=== PATIENT | male | born 1940 | race Caucasian/White ===

== ENCOUNTER 2016-07-23 07:12 | Day surgery (SDC) | payer MEDICARE ==
--- NOTE | ~2016-07-23 | OP ---
Record Of [facility] [address] [place]. [address] NAME: RIZWAN BOLANOS : 40 STATUS : [facility]#: [id number] AGE: 76 ADM/REG DATE : 07/23/16 MR#: [id number] REPORT SERV DATE: 07/23/16 DICTATED BY: FARHAD JEONG DATE: 07/23/16 REPORT STATUS : Draft TRANSCRIBED BY: MODL DATE: 07/23/16 DATE OF PROCEDURE: 07/23/2016 SERVICE: Otolaryngology. SURGEON: Fahrad Jeong MD PREOPERATIVE DIAGNOSIS: History of hypopharynx squamous cell carcinoma, status post chemoradiation. POSTOPERATIVE DIAGNOSIS: History of hypopharynx squamous cell carcinoma, status post chemoradiation. PROCEDURE PERFORMED: Direct laryngoscopy with biopsy of posterior pharynx and left arytenoid. INDICATIONS FOR PROCEDURE: The patient is a 76-year-old male with a history of hypopharyngeal squamous cell carcinoma, diagnosed last year. He completed concurrent chemoradiation therapy in 01/2016. He required PEG feedings at that time due to dysphagia and aspiration on swallow study. On recent evaluation, he was noted to have ulceration in his left posterior pharynx. Additionally, post chemoradiation PET-CT was concerning for left posterior pharynx ulceration. Consequently, he presents for direct laryngoscopy and biopsy. ANESTHESIA: General endotracheal. BLOOD LOSS: Minimal. SPECIMENS: 1. Left posterior pharynx. 2. Left arytenoid. COMPLICATIONS: None. RETAINED ITEMS: None. DESCRIPTION OF PROCEDURE: The patient was identified in preoperative holding, where informed consent was ensured. He was brought to the operating room and placed on the operating table in supine position. General endotracheal anesthesia was induced with a Glidescope without difficulty. A time-out was performed to identify the patient and discuss operative plan. The patient was then prepped and draped in the standard fashion for this procedure. The head of bed was turned to 90 degrees to facilitate access to the head and neck. A Dedo laryngoscope was inserted into the oral cavity, and a full upper airway exam ensued. The piriform sinuses, postcricoid region, subglottis, and glottis all appeared to be within normal limits. There were some inflammatory changes on the left arytenoid, which were Record Of [facility] [address] [place]. [address] NAME: RIZWAN BOLANOS : 40 STATUS : [facility]#: [id number] AGE: 76 ADM/REG DATE : 07/23/16 MR#: [id number] REPORT SERV DATE: 07/23/16 DICTATED BY: FARHAD JEONG DATE: 07/23/16 REPORT STATUS : Draft TRANSCRIBED BY: MODL DATE: 07/23/16 biopsied and sent for routine analysis. More superiorly, there was ulceration in the left posterior pharynx, concerning for possible residual or recurrent squamous cell carcinoma. Multiple biopsies were taken, proceeding in a deeper fashion with each biopsy. Remaining exam including base of tongue, epiglottis, vallecula, and pharyngoepiglottic folds was unremarkable. The posterior pharynx biopsies were sent for frozen analysis. There was no evidence of squamous cell carcinoma or atypia. Diagnosis was consistent with ulcerative changes from likely chemoradiation. Topical epinephrine was applied to areas of biopsy for hemostasis. The patient was then turned back over to Anesthesia for awakening and extubation. He was transported to the PACU in stable condition. DISPOSITION: The patient will follow up in approximately one week for re-evaluation. /SANJEEV Farhad Jeong MD / [id number] CC: MD Aly Lamar Fredrick S
[~2016-07-23 07:12] MED LIST: CARDURA1 MG PO; NICODERM C21 MG/241 TOP
[2016-07-23 07:52] LABS: HEMATOCRIT 41.8 % (40.0-51.0); HEMOGLOBIN 14.1 g/dL (13.6-17.8)
[2016-07-23 08:03] LABS: CALCIUM, SERUM 9.8 MG/DL (8.5-10.4); CHLORIDE, SERUM 100 MMOL/L (96-112); CREATININE 0.71 MG/DL (0.70-1.30); GFR AFRICAN AMERICAN 106 ML/MIN (>=60); GFR NON AFRICAN AMERICAN 91 ML/MIN (>=60); GLUCOSE, SERUM 102 MG/DL (60-99); POTASSIUM, SERUM 4.5 MMOL/L (3.5-5.3); SODIUM, SERUM 140 MMOL/L (135-148)
[2016-07-23 08:04] LABS: BUN (BLOOD UREA NITROGEN) 22 MG/DL (6-23); CO2 (CARBON DIOXIDE) 34 MMOL/L (24-34)
[2016-11-16] MEDS ORDERED: CARDU2 PEG (16:26)
[2016-11-29] MEDS ORDERED: PEP20 PEG (16:14)
== END 2016-07-23 17:07 | disposition home or self-care (01) ==
LOC: SDC 07:12
PROVIDERS: Otolaryngology
PROC: 0CBM8ZX Excision of Pharynx, Via Natural or Artificial Opening Endoscopic, Diagnostic (ICD-10-PCS; principal; 2016-07-23 08:30)
DX: J39.2 Other diseases of pharynx (principal); I10 Essential (primary) hypertension; J44.9 Chronic obstructive pulmonary disease, unspecified; R13.10 Dysphagia, unspecified; J43.9 Emphysema, unspecified; Z98.890 Other specified postprocedural states; R49.0 Dysphonia; R13.19 Other dysphagia; R22.1 Localized swelling, mass and lump, neck; R53.83 Other fatigue; C32.9 Malignant neoplasm of larynx, unspecified; Z79.899 Other long term (current) drug therapy
CPT/HCPCS: 80048; 85014; 85018; 88305; 88331; 93005; J2405; J3010